=== PATIENT | female | born 1945 | race Caucasian/White ===

== ENCOUNTER 2024-05-23 16:39 | Emergency (ER) | payer OTHER, MEDICAID ==
[~2024-05-23] VITALS: Ht 160 cm; Wt 81.2 kg
[2024-05-23] MEDS ORDERED: CYCL5TAB PO (18:07)
[2024-05-23 18:42] VITALS: BP 163/92; TEMP 97.8; O2SAT 99
== END 2024-05-23 18:42 | disposition home or self-care (01) ==
LOC: ER 16:45
DX: S16.1XXA Strain of muscle, fascia and tendon at neck level, initial encounter (principal); I10 Essential (primary) hypertension; V43.52XA Car driver injured in collision with other type car in traffic accident, initial encounter; Y93.89 Activity, other specified; Y92.410 Unspecified street and highway as the place of occurrence of the external cause; Y99.8 Other external cause status
CPT/HCPCS: 72125-TC